=== PATIENT | male | born 1995 | race Caucasian/White ===

== ENCOUNTER → 2017-08-06 | Outpatient (CLI) | payer OTHER | END | disposition home or self-care (01) | LOC: CFH 08:50 | PROVIDERS: ATTEND Internal Medicine Cardiovascular Disease | DX: R42 Dizziness and giddiness (principal) | CPT/HCPCS: 93306 ==

== ENCOUNTER 2019-11-19 16:18 | Emergency (ER) | payer OTHER ==
[~2019-11-19] VITALS: Ht 182.9 cm; Wt 73.7 kg
[2019-11-19 16:21] VITALS: BP 142/82
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
--- NOTE | 2019-11-19 16:55 | NUR ---
PT TO RAD.
--- NOTE | 2019-11-19 18:10 | NUR ---
Patient given discharge instructions and they have confirmed that they understand the instructions. Patient ambulatory with steady gait.
== END 2019-11-19 18:11 | disposition home or self-care (01) ==
LOC: ED 16:54
DX: S16.1XXA Strain of muscle, fascia and tendon at neck level, initial encounter (principal); S50.02XA Contusion of left elbow, initial encounter; S50.01XA Contusion of right elbow, initial encounter; S09.90XA Unspecified injury of head, initial encounter; M54.2 Cervicalgia; V59.49XA Driver of pick-up truck or van injured in collision with other motor vehicles in traffic accident, initial encounter; Y93.89 Activity, other specified; Y92.410 Unspecified street and highway as the place of occurrence of the external cause; Y99.8 Other external cause status
CPT/HCPCS: 70450; 72125; 99285

== ENCOUNTER 2020-07-11 13:01 | Emergency (ER) | payer OTHER ==
[~2020-07-11] VITALS: Ht 182.9 cm; Wt 77.0 kg
[2020-07-11 13:10] VITALS: BP 141/76
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
[2020-07-11] MEDS ORDERED: PLEASE ENTER HEIGHT AND WEIGHT MC SCH (13:30)
--- NOTE | 2020-07-11 13:30 | NUR ---
PT DENIES SI/SA
[2020-07-11 13:40] LABS: BASOPHILS % (AUTO) 0 % (0-1); EOSINOPHILS % (AUTO) 1 % (1-7); LYMPHOCYTES % (AUTO) 38 % (22-44); MEAN CORPUSCULAR HEMOGLOBIN 31.2 pg (27.5-34.5); MEAN CORPUSCULAR HGB CONC 34.6 g/dL (33.2-36.2); MONOCYTES % (AUTO) 7 % (2-9); NEUTROPHILS % (AUTO) 54 % (42-75); PLATELET COUNT 275 x10^3/uL (130-400); RED BLOOD COUNT 5.16 x10^6/uL (4.38-5.82); RED CELL DISTRIBUTION WIDTH 13.2 % (9.4-14.8)
[2020-07-11 13:47] LABS: MD NO
[2020-07-11 13:50] LABS: ALBUMIN 4.6 g/dL (3.4-5.0); ANION GAP 7 mmol/L (5-15); CALCIUM 9.2 mg/dL (8.5-10.1); CHLORIDE 108 mmol/L (98-107)
--- NOTE | 2020-07-11 14:18 | NUR ---
PT UP TO BATHROOM, GAIT SLOW AND STEADY, GIRLFRIEND AT BS. PEYTON KING WILL BE COMING TO SEE PATIENT, PT VERBALIZED UNDERSTANDING
--- NOTE | 2020-07-11 14:52 | NUR ---
LAITH KING IN ROOM
[2020-07-11 16:11] LABS: FREE T4 (FREE THYROXINE) 0.97 ng/dL (0.76-1.46)
--- NOTE | 2020-07-11 16:43 | NUR ---
Patient/Caregiver given discharge instructions and they have confirmed that they understand the instructions. Patient ambulatory with steady gait.
== END 2020-07-11 16:45 | disposition home or self-care (01) ==
LOC: ED 13:59
DX: F41.1 Generalized anxiety disorder (principal)
CPT/HCPCS: 36415; 80048; 82040; 84439; 84443; 85025; 99283